=== PATIENT | female | born 1985 | race Asian ===

== ENCOUNTER 2018-11-01 20:53 | Emergency (ER) | payer OTHER ==
[~2018-11-01] VITALS: Ht 157.5 cm; Wt 93.4 kg
[2018-11-01 21:10] VITALS: BP 103/57; TEMP 98.3
== END 2018-11-02 00:25 | disposition home or self-care (01) ==
LOC: ED 20:53
DX: B34.9 Viral infection, unspecified (principal); Z33.1 Pregnant state, incidental
CPT/HCPCS: 87502; 87651; 99282

== ENCOUNTER 2019-09-08 13:42 | Emergency (ER) | payer OTHER ==
[~2019-09-08] VITALS: Ht 157.5 cm; Wt 83.0 kg
[2019-09-08 15:40] VITALS: BP 106/61; TEMP 98
== END 2019-09-08 15:40 | disposition home or self-care (01) ==
LOC: ED 13:42
DX: L02.31 Cutaneous abscess of buttock (principal)
CPT/HCPCS: 99282

== ENCOUNTER 2020-03-09 11:55 | Outpatient (CLI) | payer OTHER ==
[2020-03-09 12:48] LABS: PLATELET COUNT 259 K/uL (152-353)
[2020-03-09 13:19] LABS: PARTIAL THROMBOPLASTIN TIME 26.5 SECONDS (24.5-33.6)
[2020-03-09 13:44] LABS: POTASSIUM 3.7 mmol/L (3.6-5.2); SODIUM 142 mmol/L (136-145)
== END 2020-03-09 23:25 | disposition home or self-care (01) ==
LOC: LABW 11:55
DX: Z01.818 Encounter for other preprocedural examination (principal)
CPT/HCPCS: 36415; 80053; 81000; 84702; 85027; 85610; 85730; 86701; 86702; 87389

== ENCOUNTER 2020-03-11 16:30 | Emergency (ER) | payer OTHER ==
[~2020-03-11] VITALS: Ht 157.5 cm; Wt 81.6 kg
[2020-03-11 16:41] VITALS: BP 122/63; TEMP 100
== END 2020-03-11 17:50 | disposition home or self-care (01) ==
LOC: ED 16:30
DX: J32.8 Other chronic sinusitis (principal); Z98.818 Other dental procedure status
CPT/HCPCS: 96372; 99283; J0696; J1885

== ENCOUNTER 2022-01-18 13:17 | Outpatient (CLI) | payer OTHER | END 2022-01-18 19:13 | disposition home or self-care (01) | LOC: US 13:17 | PROVIDERS: ATTEND Family Medicine | DX: Z01.818 Encounter for other preprocedural examination (principal) | CPT/HCPCS: 93005 ==

== ENCOUNTER 2022-01-23 11:03 | Outpatient (CLI) | payer OTHER | END 2022-01-23 18:47 | disposition home or self-care (01) | LOC: MAMMO 11:03 | PROVIDERS: ATTEND Family Medicine | DX: Z01.818 Encounter for other preprocedural examination (principal); Z12.31 Encounter for screening mammogram for malignant neoplasm of breast ==

== ENCOUNTER 2022-02-01 19:25 | Outpatient (CLI) | payer OTHER | END 2022-02-01 19:46 | disposition home or self-care (01) | LOC: LAB 19:25 → LABW 19:25 → LAB 19:46 | PROVIDERS: ATTEND Plastic Surgery | DX: Z01.818 Encounter for other preprocedural examination (principal); R82.998 Other abnormal findings in urine | CPT/HCPCS: 36415; 81002; 81015; 83036; 87088 ==